=== PATIENT | male | born 1980 | race African-American/Black ===

== ENCOUNTER 2024-09-21 13:24 | Inpatient (IN) | payer SELFPAY ==
[2024-09-21 17:01] LABS: Troponin I 0.027 ng/mL (< 0.028)
[2024-09-21 18:04] VITALS: BMI 32.6
[2024-09-21] MEDS: Dapagliflozin Propanediol 10 MG TAB PO SCH (18:12)
[2024-09-21] MEDS: Carvedilol 3.125 MG TAB PO SCH (18:12)
[2024-09-21] MEDS: FLU (Fluarix Triv) TS24-25(6MOS UP)/PF 45 MCG/0.5 ML Syringe IM ONE (18:12)
[2024-09-21 18:34] LABS: Iron 82 ug/dL (65-175); Iron Binding Capacity, Total 281 mcg/dL (261-462); Magnesium 1.9 mg/dL (1.6-2.6)
[2024-09-21 18:53] LABS: Ferritin 192.37 ng/mL (22-322); Thyroid Stimulating Hormone 2.1115 uIU/mL (0.35-4.94)
[2024-09-21] MEDS: Sacubitril 24MG/Valsartan 26 MG TAB PO SCH (20:58)
[2024-09-21] MEDS: Famotidine/PF 20 mg/2ml Vial SLOW IVP SCH (20:58)
[2024-09-21] MEDS: Acetaminophen 325 MG TAB PO PRN (20:59)
[2024-09-21] MEDS ORDERED: Ipratropium/Albuterol 3 ML NEB NEB PRN (21:00)
[2024-09-21 22:13] LABS: Magnesium 1.8 mg/dL (1.6-2.6)
[2024-09-22 05:03] LABS: ALT (SGPT) 47 U/L (8-55); AST (SGOT) 24 U/L (5-34); Albumin 3.3 g/dL (3.5-5.0); Alkaline Phosphatase 91 U/L (40-110); Anion Gap 11 mmol/L (10-20); BUN (Urea Nitrogen) 10 mg/dL (8.9-20.6); Bilirubin, Total 0.8 mg/dL (0.2-1.2); Calc. Creatinine Clearance 159 mL/min (70-130); Calcium 8.4 mg/dL (7.8-10.44); Carbon Dioxide 20 mmol/L (22-29); Chloride 109 mmol/L (98-107); Estimated GFR 111; Glucose 90 mg/dL (70-105); Potassium 3.4 mmol/L (3.5-5.1); Protein, Total 6.3 g/dL (6.0-8.3); Sodium 137 mmol/L (136-145)
[2024-09-22 05:24] LABS: #Basophils 0.04 10x3/uL (0.0-0.2); %Basophils 0.4 % (0.0-1.0); %Eosinophils 0.5 % (0.0-10.0); %Lymphocytes 42.1 % (21.0-51.0); %Monocytes 5.6 % (0.0-10.0); Hemoglobin 14.3 g/dL (14.0-18.0); Mean Corpuscular HGB CONC 31.8 g/dL (32.0-36.0); Mean Corpuscular Hemoglobin 22.4 pg (27.0-31.0); Mean Corpuscular Volume 70.5 fL (78.0-98.0); Mean Platelet Volume 11.1 fL (7.4-10.4); Platelet Count 274 10x3/uL (130-400); Red Blood Cell (RBC) Count 6.38 mill/uL (4.70-6.10)
[2024-09-22] MEDS ORDERED: Communication Order-Pharmacy FS SCH (06:00)
[2024-09-22] MEDS: Furosemide 40 MG (4 mL) VIAL SLOW IVP SCH (06:37)
[2024-09-22] MEDS ORDERED: Heparin 10,000 UNITS/ 10 ML VIAL ONE (07:05)
[2024-09-22] MEDS ORDERED: Midazolam HCl 2 mg/2 ml Vial ONE (07:05)
[2024-09-22] MEDS ORDERED: fentaNYL 50 mcg/mL 1 mL Vial ONE (07:05)
[2024-09-22] MEDS ORDERED: Nitroglycerin 50 MG/250 ML BOT 0 ML ONE (07:06)
[2024-09-22] MEDS ORDERED: Lisinopril 2.5 MG TAB PO SCH (09:00)
[2024-09-22] MEDS ORDERED: Enoxaparin 40 MG (0.4 mL) SYRINGE SC SCH (09:00)
[2024-09-22] MEDS: Dapagliflozin Propanediol 10 MG TAB PO SCH (09:47)
[2024-09-22] MEDS ORDERED: Iopamidol 370 76% 100 ML VIAL ONE (11:20)
[2024-09-22] MEDS: Spironolactone 25 MG TAB PO SCH (14:47)
[2024-09-22] MEDS: Carvedilol 3.125 MG TAB PO SCH (17:51)
[2024-09-23 07:39] LABS: Anion Gap 15 mmol/L (10-20); BUN (Urea Nitrogen) 15 mg/dL (8.9-20.6); Calc. Creatinine Clearance 117 mL/min (70-130); Calcium 9.3 mg/dL (7.8-10.44); Carbon Dioxide 21 mmol/L (22-29); Chloride 105 mmol/L (98-107); Estimated GFR 86; Glucose 117 mg/dL (70-105); Potassium 3.1 mmol/L (3.5-5.1); Sodium 138 mmol/L (136-145)
[2024-09-23 07:53] LABS: #Basophils 0.06 10x3/uL (0.0-0.2); %Basophils 0.6 % (0.0-1.0); %Eosinophils 0.5 % (0.0-10.0); %Lymphocytes 37.1 % (21.0-51.0); %Monocytes 7.8 % (0.0-10.0); %Neutrophils 53.8 % (42.0-75.0); Hematocrit 54.3 % (42.0-52.0); Hemoglobin 17.2 g/dL (14.0-18.0); Mean Corpuscular HGB CONC 31.7 g/dL (32.0-36.0); Mean Corpuscular Hemoglobin 22.2 pg (27.0-31.0); Mean Corpuscular Volume 70.2 fL (78.0-98.0); Mean Platelet Volume 10.3 fL (7.4-10.4); Platelet Count 315 10x3/uL (130-400); RBC Distribution Width 18.5 % (11.5-14.5); Red Blood Cell (RBC) Count 7.74 mill/uL (4.70-6.10)
[2024-09-23] MEDS: Aspirin 325 MG TAB PO SCH (09:43)
[2024-09-23] MEDS: Carvedilol 25 MG TAB PO SCH (09:44)
[2024-09-23] MEDS: Spironolactone 25 MG TAB PO SCH (09:44)
[2024-09-24 05:03] LABS: Anion Gap 16 mmol/L (10-20); BUN (Urea Nitrogen) 19 mg/dL (8.9-20.6); Calc. Creatinine Clearance 117 mL/min (70-130); Carbon Dioxide 19 mmol/L (22-29); Chloride 105 mmol/L (98-107); Estimated GFR 86; Glucose 105 mg/dL (70-105); Potassium 3.1 mmol/L (3.5-5.1); Sodium 137 mmol/L (136-145)
[2024-09-24] MEDS: Potassium Chloride 20 MEQ TAB PO ONE (07:52)
[2024-09-24] MEDS: Potassium Chloride 20 MEQ TAB PO SCH (07:58)
[2024-09-24] MEDS: Carvedilol 6.25 MG TAB PO SCH (17:44)
[2024-09-24 21:45] VITALS: BP 135/71; TEMP 97.3
== END 2024-09-24 20:44 | disposition home or self-care (01) | DRG 287 ==
LOC: 2NO 14:21 → OBSVTOIN 09-22 13:21
PROVIDERS: ADMIT Hospitalist; ATTEND Internal Medicine
PROC: 4A023N7 Measurement of Cardiac Sampling and Pressure, Left Heart, Percutaneous Approach (ICD-10-PCS; principal; 2024-09-22)
PROC: B2111ZZ Fluoroscopy of Multiple Coronary Arteries using Low Osmolar Contrast (ICD-10-PCS; 2024-09-22)
DX: I50.23 Acute on chronic systolic (congestive) heart failure (principal); I47.20 Ventricular tachycardia, unspecified; I42.9 Cardiomyopathy, unspecified; E78.5 Hyperlipidemia, unspecified; F19.10 Other psychoactive substance abuse, uncomplicated; F17.200 Nicotine dependence, unspecified, uncomplicated; Z71.6 Tobacco abuse counseling; Z71.51 Drug abuse counseling and surveillance of drug abuser; Z79.899 Other long term (current) drug therapy; E87.6 Hypokalemia
CPT/HCPCS: 36415; 80048; 80053; 82728; 83540; 83550; 83735; 83880; 84443; 84484; 85025; 93306; 93458; 97139; 99152; C1769; C1887; J1644; J1940; J2250; J3010; J3490; Q9967

== ENCOUNTER 2025-09-27 11:23 | Inpatient (IN) | payer OTHER, SELFPAY ==
[2025-09-27 13:37] LABS: #Basophils 0.03 10x3/uL (0.0-0.2); #Eosinophils Less than 0.03 10x3/uL (0.0-0.7); #Monocytes 1.02 10x3/uL (0.11-0.59); #Neutrophils 9.12 10x3/uL (1.40-6.50); %Basophils 0.2 % (0.0-1.0); %Eosinophils 0.1 % (0.0-10.0); %Lymphocytes 15.8 % (21.0-51.0); %Monocytes 8.4 % (0.0-10.0); %Neutrophils 75.3 % (42.0-75.0); ALT (SGPT) 19 U/L (Less than 45); AST (SGOT) 21 U/L (11-34); Albumin 3.8 g/dL (3.1-4.5); Alkaline Phosphatase 107 U/L (40-110); Anion Gap 13 mmol/L (10-20); BUN (Urea Nitrogen) 12 mg/dL (8.9-20.6); Bilirubin, Total 0.9 mg/dL (0.3-1.2); Calc. Creatinine Clearance 0 mL/min (70-130); Calcium 8.7 mg/dL (7.8-10.44); Carbon Dioxide 24 mmol/L (22-29); Chloride 106 mmol/L (98-107); Globulin 3.5 g/dL (2.4-3.5); Glucose 99 mg/dL (70-105); Hematocrit 43.9 % (42.0-52.0); Hemoglobin 13.7 g/dL (14.0-18.0); Mean Corpuscular Hemoglobin 22.9 pg (27.0-31.0); Mean Corpuscular Volume 73.3 fL (78.0-98.0); Platelet Count 290 10x3/uL (130-400); Potassium 3.5 mmol/L (3.5-5.1); Red Blood Cell (RBC) Count 5.99 mill/uL (4.70-6.10); Sodium 139 mmol/L (136-145); White Blood Cell (WBC) Count 12.12 10x3/uL (4.8-10.8)
[2025-09-27 14:23] LABS: Anisocytosis SLIGHT = 6-15 cells HPF (0-5); Burr Cells SLIGHT = 2-5 cells HPF (0-1); Macrocytosis SLIGHT = 6-15 cells HPF (0-5); Microcytosis MODERATE=15-30 cells HPF (0-5); Platelet Adequacy Comment Platelets Normal; Schistocytes SLIGHT = 2-5 cells HPF (0-1); Target Cells SLIGHT = 2-5 cells HPF (0-1)
[2025-09-27] MEDS ORDERED: Furosemide 40 MG (4 mL) VIAL ONE (14:41)
[2025-09-27] MEDS ORDERED: Senokot S 8.6-50 MG TAB PO PRN (17:33)
[2025-09-27] MEDS ORDERED: Ondansetron PF 4 MG/2 ML Vial IVP PRN (17:33)
[2025-09-27] MEDS ORDERED: Acetaminophen 325 MG TAB PO PRN (17:33)
[2025-09-27] MEDS ORDERED: Melatonin 3 MG TAB PO PRN (17:33)
[2025-09-27] MEDS ORDERED: Carvedilol 25 MG TAB ONE (21:29)
[2025-09-27] MEDS ORDERED: Sacubitril 49 MG/Valsartan 51 MG TABLET ONE (21:29)
[2025-09-27] MEDS: Carvedilol 25 MG TAB PO SCH (21:39)
[2025-09-27 23:09] VITALS: BMI 31.8
[2025-09-27] MEDS: Sacubitril 24MG/Valsartan 26 MG TAB PO SCH (23:50)
[2025-09-28 05:26] LABS: Anion Gap 14 mmol/L (10-20); BUN (Urea Nitrogen) 13 mg/dL (8.9-20.6); Calc. Creatinine Clearance 111 mL/min (70-130); Calcium 8.8 mg/dL (7.8-10.44); Carbon Dioxide 25 mmol/L (22-29); Chloride 104 mmol/L (98-107); Glucose 106 mg/dL (70-105); Iron 23 ug/dL (65-175); Iron Binding Capacity, Total 289 mcg/dL (261-462); Potassium 3.1 mmol/L (3.5-5.1); Sodium 140 mmol/L (136-145)
[2025-09-28] MEDS: Furosemide 40 MG (4 mL) VIAL SLOW IVP SCH (05:28)
[2025-09-28 05:40] LABS: #Basophils 0.04 10x3/uL (0.0-0.2); #Eosinophils Less than 0.03 10x3/uL (0.0-0.7); #Monocytes 1.30 10x3/uL (0.11-0.59); #Neutrophils 9.62 10x3/uL (1.40-6.50); %Basophils 0.3 % (0.0-1.0); %Eosinophils 0.1 % (0.0-10.0); %Lymphocytes 22.1 % (21.0-51.0); %Monocytes 9.2 % (0.0-10.0); %Neutrophils 68.0 % (42.0-75.0); Hematocrit 42.1 % (42.0-52.0); Hemoglobin 13.1 g/dL (14.0-18.0); Mean Corpuscular Hemoglobin 22.9 pg (27.0-31.0); Mean Corpuscular Volume 73.5 fL (78.0-98.0); Platelet Count 272 10x3/uL (130-400); Red Blood Cell (RBC) Count 5.73 mill/uL (4.70-6.10); White Blood Cell (WBC) Count 14.14 10x3/uL (4.8-10.8)
[2025-09-28 05:44] LABS: Ferritin 222.01 ng/mL (22-322)
[2025-09-28 07:47] LABS: Cocaine Metabolite Screen Negative (Negative); THC/Cannabinoid Screen PRELIM POSITIVE (Negative); Tricyclic Screen Negative (Negative)
[2025-09-28] MEDS ORDERED: Aspirin 325 MG TAB PO SCH (08:00)
[2025-09-28] MEDS: Aspirin 81 mg Enteric Coated Tablet PO SCH (09:52)
[2025-09-28] MEDS: Spironolactone 25 MG TAB PO SCH (09:52)
[2025-09-28] MEDS: Dapagliflozin Propanediol 10 MG TAB PO SCH (09:53)
[2025-09-28] MEDS ORDERED: Sacubitril 24MG/Valsartan 26 MG TAB PO SCH (21:00)
[2025-09-29 02:24] LABS: #Basophils 0.06 10x3/uL (0.0-0.2); #Eosinophils 0.06 10x3/uL (0.0-0.7); #Monocytes 1.58 10x3/uL (0.11-0.59); #Neutrophils 8.76 10x3/uL (1.40-6.50); %Basophils 0.4 % (0.0-1.0); %Eosinophils 0.4 % (0.0-10.0); %Lymphocytes 26.8 % (21.0-51.0); %Monocytes 11.0 % (0.0-10.0); %Neutrophils 61.1 % (42.0-75.0); Hematocrit 46.3 % (42.0-52.0); Hemoglobin 14.2 g/dL (14.0-18.0); Mean Corpuscular Hemoglobin 22.7 pg (27.0-31.0); Mean Corpuscular Volume 74.0 fL (78.0-98.0); Platelet Count 275 10x3/uL (130-400); Red Blood Cell (RBC) Count 6.26 mill/uL (4.70-6.10); White Blood Cell (WBC) Count 14.34 10x3/uL (4.8-10.8)
[2025-09-29 02:31] LABS: Anion Gap 12 mmol/L (10-20); BUN (Urea Nitrogen) 14 mg/dL (8.9-20.6); Calc. Creatinine Clearance 122 mL/min (70-130); Calcium 9.0 mg/dL (7.8-10.44); Carbon Dioxide 22 mmol/L (22-29); Chloride 108 mmol/L (98-107); Glucose 107 mg/dL (70-105); Magnesium 2.2 mg/dL (1.6-2.6); Potassium 3.3 mmol/L (3.5-5.1); Sodium 139 mmol/L (136-145)
[2025-09-29] MEDS ORDERED: Electrolyte Replacement Protocol 1 EACH FS SCH (08:15)
[2025-09-29] MEDS ORDERED: Potassium Chloride 20 MEQ in Premix 1 BAG IVPB PRN (08:30)
[2025-09-29] MEDS ORDERED: Magnesium 2 GM/50 ML(in water) 2 GM in Premix 1 BAG IVPB PRN (08:30)
[2025-09-29] MEDS ORDERED: PHOS-NAK 1 PKT PACK PO PRN (08:30)
[2025-09-29] MEDS: Spironolactone 25 MG TAB PO SCH (08:34)
[2025-09-29] MEDS: Carvedilol 25 MG TAB PO SCH (08:35)
[2025-09-29] MEDS: Sacubitril 24MG/Valsartan 26 MG TAB PO SCH (08:36)
[2025-09-29] MEDS ORDERED: Sacubitril 24MG/Valsartan 26 MG TAB PO SCH (09:00)
[2025-09-29] MEDS ORDERED: Furosemide 40 MG (4 mL) VIAL SLOW IVP SCH ×2 (09:00→14:00)
[2025-09-29 09:50] LABS: Potassium 4.0 mmol/L (3.5-5.1)
[2025-09-29 11:33] VITALS: BP 103/70; TEMP 97
== END 2025-09-29 13:57 | disposition home or self-care (01) | DRG 291 ==
LOC: ERS 11:23 → ERHOLD 16:15 → OBS 22:31 → OBSVTOIN 09-28 13:02
PROVIDERS: ADMIT Internal Medicine; ATTEND Family Medicine
DX: I11.0 Hypertensive heart disease with heart failure (principal); I50.23 Acute on chronic systolic (congestive) heart failure; I42.8 Other cardiomyopathies; E87.6 Hypokalemia; D72.829 Elevated white blood cell count, unspecified; F19.10 Other psychoactive substance abuse, uncomplicated; F17.200 Nicotine dependence, unspecified, uncomplicated; Z98.890 Other specified postprocedural states; Z79.82 Long term (current) use of aspirin; Z79.899 Other long term (current) drug therapy
CPT/HCPCS: 36415; 71045; 80048; 80053; 80306; 82728; 83540; 83550; 83735; 83880; 84443; 84484; 85025; 87428; 93005; 93306; 93798; 96374; 96376; G0378; J1940; J7030